=== PATIENT | female | born 1980 | race American Indian/Alaskan Native ===

== ENCOUNTER 2017-04-19 15:59 | Emergency (ER) | payer MEDICAID ==
[2017-04-19 16:17] VITALS: BP 152/91
== END 2017-04-20 02:25 | disposition left against medical advice (07) ==
LOC: ED 15:59
DX: R42 Dizziness and giddiness (principal); Z53.21 Procedure and treatment not carried out due to patient leaving prior to being seen by health care provider

== ENCOUNTER 2019-03-28 19:56 | Emergency (ER) | payer MEDICAID, OTHER ==
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
[2019-03-28] MEDS ORDERED: HYDROcodone/ACETAMINOPHEN 5-325 MG TAB PO ONE (23:48)
[2019-03-29 01:14] VITALS: BP 145/103
== END 2019-03-29 01:00 | disposition home or self-care (01) ==
LOC: ED 19:56
DX: S83.91XA Sprain of unspecified site of right knee, initial encounter (principal); S82.141A Displaced bicondylar fracture of right tibia, initial encounter for closed fracture; I10 Essential (primary) hypertension; Z79.1 Long term (current) use of non-steroidal anti-inflammatories (NSAID); Z79.899 Other long term (current) drug therapy; X50.1XXA Overexertion from prolonged static or awkward postures, initial encounter; Y93.89 Activity, other specified; Y92.89 Other specified places as the place of occurrence of the external cause; Y99.8 Other external cause status

== ENCOUNTER 2020-06-15 23:38 | Emergency (ER) | payer OTHER ==
[2020-06-16 01:03] VITALS: BP 149/92
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
== END 2020-06-16 02:22 | disposition home or self-care (01) ==
LOC: ED 23:38
DX: M62.838 Other muscle spasm (principal); I10 Essential (primary) hypertension; Z79.899 Other long term (current) drug therapy; V49.59XA Passenger injured in collision with other motor vehicles in traffic accident, initial encounter; Y93.89 Activity, other specified; Y92.488 Other paved roadways as the place of occurrence of the external cause; Y99.8 Other external cause status
CPT/HCPCS: 99282